=== PATIENT | male | born 1990 | race Hispanic/Latino ===

== ENCOUNTER 2021-03-24 21:11 | Emergency (ER) | payer SELFPAY ==
[~2021-03-24] VITALS: Ht 180.3 cm; Wt 81.7 kg
== END 2021-03-24 23:15 | disposition home or self-care (01) ==
LOC: ED 21:11
DX: U07.1 COVID-19 (principal); F17.200 Nicotine dependence, unspecified, uncomplicated; Z88.0 Allergy status to penicillin
CPT/HCPCS: 99283; U0003

== ENCOUNTER 2021-12-14 23:09 | Emergency (ER) | payer OTHER ==
[~2021-12-14] VITALS: Ht 180.3 cm; Wt 89.2 kg
[2021-12-15] MEDS ORDERED: AUGMENTIN 875-1 EACH PO (00:49)
[2021-12-15] MEDS ORDERED: IBU600 MG PO (00:54)
== END 2021-12-15 01:08 | disposition home or self-care (01) ==
LOC: ED 23:09
DX: J03.90 Acute tonsillitis, unspecified (principal); F17.200 Nicotine dependence, unspecified, uncomplicated; Z88.0 Allergy status to penicillin
CPT/HCPCS: 99283; A9270; J1100

== ENCOUNTER 2022-08-18 02:40 | Emergency (ER) | payer OTHER ==
[~2022-08-18] VITALS: Ht 180.3 cm; Wt 88.9 kg
[~2022-08-18 02:40] MED LIST: AUGMENTIN 875-1 EACH PO; IBU600 MG PO
[2022-08-18] MEDS ORDERED: CLEOCIN HCL300 MG PO (03:01)
== END 2022-08-18 03:31 | disposition home or self-care (01) ==
LOC: ED 02:40
DX: K02.9 Dental caries, unspecified (principal); F17.200 Nicotine dependence, unspecified, uncomplicated; Z88.0 Allergy status to penicillin
CPT/HCPCS: 99282; A9270

== ENCOUNTER 2025-02-13 22:33 | Emergency (ER) | payer OTHER ==
[~2025-02-13] VITALS: Ht 180.3 cm; Wt 86.0 kg
[~2025-02-13 22:33] MED LIST changes: +CLEOCIN HCL300 MG PO; +CYCLOBENZAPRINE10 MG PO
[2025-02-14] MEDS ORDERED: KETOROLAC TROMETHAMINE 30 MG/ML VIAL IV ONE (00:30)
[2025-02-14] MEDS ORDERED: DAPTOmycin 500 MG/10 ML VIAL IV SCH ×2 (00:45→09:00)
[2025-02-14 01:02] LABS: ALBUMIN 3.9 g/dL (3.4-5.0); ALBUMIN/GLOBULIN RATIO 1.22 (1.1-2.4); ANION GAP 12.2 (7-21); BASOPHILS 0.7 % (0-2); BILIRUBIN, TOTAL 0.2 mg/dL (0.2-1.0); BUN/CREATININE RATIO 15.06 (6.0-28.6); CALCIUM 8.9 mg/dL (8.5-10.1); CREATININE, SERUM 0.73 mg/dL (0.70-1.30); EOSINOPHILS 1.5 % (0-6); HEMATOCRIT 42.1 % (35.0-50.0); HEMOGLOBIN 14.5 g/dL (12.0-18.0); LYMPHOCYTES 22.9 % (24-44); MCH 31.7 (27-36); MCHC 34.6 g/dl (30-36); MCV 91.6 fl (81-99); MONOCYTES 8.2 % (0-12); NEUTROPHILS 66.7 % (39-80); PLATELET COUNT 203 K/uL (140-440); POTASSIUM 4.2 mmol/L (3.5-5.1); PROTEIN, TOTAL 7.1 g/dL (6.4-8.2); RBC 4.59 M/ul (4.3-5.7); RDW 13.2 (10.5-15.0)
[2025-02-14 01:05] LABS: LACTIC ACID, BLOOD 0.8 mmol/L (0.4-2.0)
[2025-02-14] MEDS ORDERED: LACTATED RINGER'S 1,000 ML IV ONE (01:30)
[2025-02-14 02:05] LABS: ERYTHROCYTE SEDIMENTATION RATE 10
[2025-02-14] MEDS ORDERED: DOXYCYCLINE HY100 MG PO (02:26)
[2025-02-14 02:42] VITALS: BP 145/92
== END 2025-02-14 02:40 | disposition home or self-care (01) ==
LOC: ED 22:33
PROVIDERS: Internal Medicine
DX: L03.115 Cellulitis of right lower limb (principal); K04.7 Periapical abscess without sinus; V18.0XXA Pedal cycle driver injured in noncollision transport accident in nontraffic accident, initial encounter; Z88.0 Allergy status to penicillin; F17.200 Nicotine dependence, unspecified, uncomplicated
CPT/HCPCS: 36415; 73590; 80053; 80307; 83605; 85025; 85651; 86140; 87040; 96374; 96375; 99283-25; J0878; J1885; J7121